=== PATIENT | male | born 1990 | race Caucasian/White ===

== ENCOUNTER 2018-10-11 10:57 | Emergency (ER) | payer SELFPAY ==
[~2018-10-11] VITALS: Ht 190.5 cm; Wt 176.0 kg
--- OUTSIDE RECORDS SUMMARY | 2018-10-11 11:03 | XMS REPORT | Continuity of Care Document ---
Author Organization Unknown Address Unknown Allergies There is no data. Medications There is no data. Problems There is no data. Procedures There is no data. Results There is no data. Encounters ACCT No. Visit Date/Time Discharge Status Pt. Type Provider Facility Loc./Unit Complaint [id number] 10/09/2018 18:00:00 ACT Outpatient JOSE KRAMER [facility] IN [facility]
--- NOTE | 2018-10-11 11:08 | ED General ---
General Stated Complaint: DIZZY/LOST VISION IN RT EYE AFTER TAKING MEDS Source of Information: Patient Exam Limitations: No Limitations History of Present Illness Date Seen by Provider: Oct 11, 2018 Time Seen by Provider: 11:10 Initial Comments 28-year-old male presents after getting dizzy. Patient reports he was outside working when ago bit dizzy and lost some brief vision in his right eye. Patient reports that he is concerned might be due to his medication. He is taking Cefdiner for recurrent strep. Patient also reports that he was outside working all day yesterday in the heat and then again this morning when this happened. He is feeling all dehydrated based states he is trying to drink. Patient to have a sore throat from his strep. He did not lose consciousness when he dizzy. He did not have any other focal weaknesses. Allergies and Home Medications Allergies Coded Allergies: Penicillins (Verified Allergy, Unknown, 10/11/18) amoxicillin (Verified Allergy, Unknown, 10/11/18) Patient Home Medication List Home Medication List Reviewed: Yes Review of Systems Review of Systems Constitutional: dizziness, malaise EENTM: see HPI Respiratory: no symptoms reported Cardiovascular: no symptoms reported Gastrointestinal: no symptoms reported Genitourinary: no symptoms reported Musculoskeletal: no symptoms reported Skin: no symptoms reported Past Pozpcze-Bdgrxy-Ipvgez Hx Past Med/Social Hx: Reviewed Nursing Past Med/Soc Hx Physical Exam Vital Signs Vital Signs - First Documented 10/11/18 11:00 Temp 98.0 Pulse 118 Resp 18 B/P (MAP) 142/113 (123) Pulse Ox 95 O2 Delivery Room Air Capillary Refill : Height, Weight, BMI Height: '" Weight: lbs. oz. 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 Norm as Tested Skin: Warm/Dry Focused Exam Lactate Level 10/11/18 11:30: Lactic Acid Level 0.75 Lactic Acid Level Laboratory Tests Test 10/11/18 11:30 Lactic Acid Level 0.75 MMOL/L (0.50-2.00) Progress/Results/Core Measures Suspected Sepsis SIRS Temperature: Pulse: Respiratory Rate: Laboratory Tests 10/11/18 11:30: White Blood Count 7.0 Blood Pressure / Mean: 10/11/18 11:30: Lactic Acid Level 0.75 Laboratory Tests 10/11/18 11:30: Creatinine 0.72, Platelet Count 151 Results/Orders Lab Results Laboratory Tests Test 10/11/18 11:30 Range/Units White Blood Count 7.0 4.3-11.0 10^3/uL Red Blood Count 4.51 4.35-5.85 10^6/uL Hemoglobin 13.5 13.3-17.7 G/DL Hematocrit 41 40-54 % Mean Corpuscular Volume 90 80-99 FL Mean Corpuscular Hemoglobin 30 25-34 PG Mean Corpuscular Hemoglobin Concent 33 32-36 G/DL Red Cell Distribution Width 13.0 10.0-14.5 % Platelet Count 151 130-400 10^3/uL Mean Platelet Volume 13.2 H 7.4-10.4 FL Neutrophils (%) (Auto) 64 42-75 % Lymphocytes (%) (Auto) 21 12-44 % Monocytes (%) (Auto) 1 0-12 % Eosinophils (%) (Auto) 3 0-10 % Basophils (%) (Auto) 0 0-10 % Neutrophils # (Auto) 4.5 1.8-7.8 X 10^3 Lymphocytes # (Auto) 1.5 1.0-4.0 X 10^3 Monocytes # (Auto) 0.8 0.0-1.0 X 10^3 Eosinophils # (Auto) 0.2 0.0-0.3 10^3/uL Basophils # (Auto) 0.0 0.0-0.1 10^3/uL Sodium Level 141 135-145 MMOL/L Potassium Level 4.1 3.6-5.0 MMOL/L Chloride Level 103 98-107 MMOL/L Carbon Dioxide Level 24 21-32 MMOL/L Anion Gap 14 5-14 MMOL/L Blood Urea Nitrogen 11 7-18 MG/DL Creatinine 0.72 0.60-1.30 MG/DL Estimat Glomerular Filtration Rate > 60 BUN/Creatinine Ratio 15 Glucose Level 95 70-105 MG/DL Lactic Acid Level 0.75 0.50-2.00 MMOL/L Calcium Level 9.4 8.5-10.1 MG/DL My Orders Orders - EDA ALLEN DO Basic Metabolic Panel (10/11/18 11:11) Cbc With Automated Diff (10/11/18 11:11) Lactic Acid Analyzer (10/11/18 11:11) Ed Iv/Invasive Line Start (10/11/18 11:11) Ns Iv 1000 Ml (Sodium Chloride 0.9%) (10/11/18 11:11) Vital Signs/I&O 10/11/18 10/11/18 11:00 11:52 Temp 98.0 Pulse 118 Resp 18 B/P (MAP) 142/113 (123) 113/72 (86) Pulse Ox 95 O2 Delivery Room Air Capillary Refill : Progress Note : Time: 12:25 Progress Note Patient had no further episodes since 1 from this morning and remained asymptomatic throughout his stay in the ER. He has no acute physical findings. I reviewed normal labs with him. I discussed with patient that I suspect it was from he exhaustion and dehydration due to him being outside all day yesterday and then it reoccurring when he was outside this morning. I did discuss with him that he should try his medication for one more dose. It if he gets recurrent symptoms following that antibiotic that he should stop it and follow-up with her primary care physician for different antibiotic. Patient will be discharged home in stable condition. Departure Impression Primary Impression: Dizziness Additional Impressions: Heat causing syncope Qualified Codes: T67.1XXA - Heat syncope, initial encounter Dehydration Strep pharyngitis Disposition: 01 HOME, SELF-CARE Condition: Improved Departure-Patient Inst. Referrals: JOSE KRAMER MD (PCP/Family) Primary Care Physician Patient Instructions: Syncope (Fainting) (DC), Strep Throat (DC), Dehydration, Adult (DC), Heat Exhaustion and Heat Stroke (DC) EDA ALLEN DO Oct 11, 2018 11:08
[2018-10-11] MEDS ORDERED: NS IV 1000 ML 1,000 ML IV SCH (11:11)
[2018-10-11 11:44] LABS: BASOPHILS % (AUTO) 0 % (0-10); EOSINOPHILS % (AUTO) 3 % (0-10); HEMATOCRIT 41 % (40-54); HEMOGLOBIN 13.5 G/DL (13.3-17.7); LYMPHOCYTES % (AUTO) 21 % (12-44); MEAN CORPUSCULAR HEMOGLOBIN 30 PG (25-34); MEAN CORPUSCULAR HGB CONC 33 G/DL (32-36); MEAN CORPUSCULAR VOLUME 90 FL (80-99); MEAN PLATELET VOLUME 13.2 FL (7.4-10.4); MONOCYTES % (AUTO) 1 % (0-12); NEUTROPHILS # (AUTO) 4.5 X 10^3 (1.8-7.8); NEUTROPHILS % (AUTO) 64 % (42-75); PLATELET COUNT 151 10^3/uL (130-400)
[2018-10-11 11:45] LABS: EOSINOPHILS # (AUTO) 0.2 10^3/uL (0.0-0.3); LYMPHOCYTES # (AUTO) 1.5 X 10^3 (1.0-4.0); MONOCYTES # (AUTO) 0.8 X 10^3 (0.0-1.0)
[2018-10-11 11:52] VITALS: BP 113/72
[2018-10-11 12:08] LABS: BUN/CREATININE RATIO 15; CALCIUM 9.4 MG/DL (8.5-10.1); CARBON DIOXIDE 24 MMOL/L (21-32); CHLORIDE 103 MMOL/L (98-107); CREATININE SERUM 0.72 MG/DL (0.60-1.30); GFR ESTIMATED > 60; GLUCOSE 95 MG/DL (70-105); POTASSIUM 4.1 MMOL/L (3.6-5.0); SODIUM 141 MMOL/L (135-145)
[2018-10-11] MEDS ORDERED: cefTRIAXone 1,000 MG IV (ROCEPHIN) VIAL ONE (12:41)
[2018-10-11] MEDS ORDERED: WATER (STERILE) FOR INJECTION 10 ML ONE (12:42)
[2018-10-11] MEDS ORDERED: cefTRIAXone FOR IV USE 1,000 MG in WATER (STERILE) FOR INJECTION 10 ML IV ONE (12:45)
[2018-10-11] MEDS ORDERED: ONDANSETRON 4 MG/2 ML (SDV) Z0FRAN ONE (12:50)
[2018-10-11] MEDS ORDERED: ONDANSETRON 4 MG/2 ML (SDV) Z0FRAN IVP ONE (13:00)
[2018-10-11 13:15] VITALS: BP 115/82
== END 2018-10-11 13:00 | disposition home or self-care (01) ==
LOC: ER FS 11:00
DX: T67.1XXA Heat syncope, initial encounter (principal); R42 Dizziness and giddiness; E86.0 Dehydration; J02.0 Streptococcal pharyngitis; Z88.0 Allergy status to penicillin; Z88.1 Allergy status to other antibiotic agents
CPT/HCPCS: 36415; 80048; 83605; 85025

== ENCOUNTER 2019-01-05 08:42 | Emergency (ER) | payer SELFPAY ==
[~2019-01-05] VITALS: Ht 190 cm; Wt 181.0 kg
[2019-01-05] MEDS ORDERED: ASPIRIN 81 MG CHEW (CHILDREN'S ASA) PO ONE (09:15)
--- NOTE | 2019-01-05 09:41 | Diagnostic Imaging Report ---
Indication: Chest pain. Time of exam: 9:09 AM No prior studies are available for comparison. The heart size is normal. The pulmonary vascularity is unremarkable. The lungs are clear. No infiltrate, effusion or pneumothorax is detected. Impression: No acute cardiopulmonary process is detected. Dictated by: Dictated on workstation # [id number]
--- NOTE | 2019-01-05 09:42 | ED Cardiac General ---
History of Present Illness General Chief Complaint: Chest Pain Stated Complaint: CHEST PAIN; HIGH BP; BLURRY VISION Nursing Triage Note: woke up from sleep this a.m. with chest pain, currently rated at 3/10. States has had chest pain before but does not remember what it is from. Has vomited 3 times this morning. History of Present Illness Date Seen by Provider: Jan 05, 2019 Time Seen by Provider: 08:45 Initial Comments The patient is a 28-year-old morbidly obese male who is a tobacco smoker. He has no known medical history but does not follow with a primary care physician. The patient presents with concern for acute onset of achy substernal chest discomfort, nonradiating and constant, which awoke him from sleep at about 4 AM. Pain was 10 out of 10 in severity initially and is about 3 out of 10 now, but still present. Associated nausea with 3 episodes of nonbloody vomiting. No associated shortness of breath, diaphoresis, abdominal pain or back pain. Patient states pain is nonexertional and perhaps minimally pleuritic, but not significantly so. No associated fevers, cough, dysuria or hematuria, changes in bowel habits. H and states that he has had this pain before, some time ago, and had a negative workup in the emergency department and was released to follow up but did not do so. Allergies and Home Medications Allergies Coded Allergies: Penicillins (Verified Allergy, Unknown, 10/11/18) amoxicillin (Verified Allergy, Unknown, 10/11/18) Patient Home Medication List Home Medication List Reviewed: Yes Review of Systems Review of Systems Constitutional: see HPI All Other Systems Reviewed Negative Unless Noted: Yes (Negative excepted noted.) Past Bejcmrz-Woocvp-Eezbdn Hx Past Med/Social Hx: Reviewed Nursing Past Med/Soc Hx Patient Social History Alcohol Use: Denies Use Recreational Drug Use: No Smoking Status: Current Someday Smoker 2nd Hand Smoke Exposure: Yes Recent Foreign Travel: No Contact w/Someone Who Travel: No Recent Infectious Disease Expo: No Recent Hopitalizations: No Physical Abuse: No Sexual Abuse: No Mistreated: No Fear: No Seasonal Allergies Seasonal Allergies: No Past Medical History Surgeries: No Respiratory: No Cardiac: No Neurological: No Genitourinary: No Gastrointestinal: No Musculoskeletal: No Endocrine: No HEENT: No Cancer: No Psychosocial: No Integumentary: No Family Medical History Reviewed Nursing Family Hx Physical Exam Vital Signs Vital Signs - First Documented 01/05/19 08:50 Temp 36.3 Pulse 81 Resp 18 B/P (MAP) 135/73 (93) Pulse Ox 98 Capillary Refill : Less Than 3 Seconds Height, Weight, BMI Height: 6'3.00" Weight: 388lbs. oz. [id number]; 50.00 BMI Method:Stated General Appearance: No Apparent Distress Other comments This is a morbidly obese, younger male appearing nontoxic and in no acute distress. Head is normocephalic and atraumatic. Neck is supple and nontender. Oropharynx is moist. Lungs are clear to auscultation in all stations. There is a normal S1 and S2 without rubs or gallops and capillary refill is appropriate, less than 2 seconds globally. Abdomen is soft, nontender and nondistended. Skin is warm and dry without cyanosis, clubbing or edema. Psychiatrically, the patient instructed appropriate mood and affect and is a lert. Progress/Results/Core Measures Results/Orders Lab Results Laboratory Tests Test 01/05/19 09:23 Range/Units White Blood Count 5.0 4.3-11.0 10^3/uL Red Blood Count 4.70 4.35-5.85 10^6/uL Hemoglobin 13.8 13.3-17.7 G/DL Hematocrit 42 40-54 % Mean Corpuscular Volume 87 80-99 FL Mean Corpuscular Hemoglobin 29 25-34 PG Mean Corpuscular Hemoglobin Concent 33 32-36 G/DL Red Cell Distribution Width 12.4 10.0-14.5 % Platelet Count 149 130-400 10^3/uL Mean Platelet Volume 13.0 H 7.4-10.4 FL Neutrophils (%) (Auto) 58 42-75 % Lymphocytes (%) (Auto) 29 12-44 % Monocytes (%) (Auto) 10 0-12 % Eosinophils (%) (Auto) 3 0-10 % Basophils (%) (Auto) 0 0-10 % Neutrophils # (Auto) 2.9 1.8-7.8 X 10^3 Lymphocytes # (Auto) 1.5 1.0-4.0 X 10^3 Monocytes # (Auto) 0.5 0.0-1.0 X 10^3 Eosinophils # (Auto) 0.1 0.0-0.3 10^3/uL Basophils # (Auto) 0.0 0.0-0.1 10^3/uL Prothrombin Time 12.9 12.2-14.7 SEC INR Comment 0.9 0.8-1.4 Activated Partial Thromboplast Time 25 24-35 SEC Sodium Level 142 135-145 MMOL/L Potassium Level 4.5 3.6-5.0 MMOL/L Chloride Level 107 98-107 MMOL/L Carbon Dioxide Level 26 21-32 MMOL/L Anion Gap 9 5-14 MMOL/L Blood Urea Nitrogen 8 7-18 MG/DL Creatinine 0.64 0.60-1.30 MG/DL Estimat Glomerular Filtration Rate > 60 BUN/Creatinine Ratio 13 Glucose Level 111 H 70-105 MG/DL Calcium Level 9.6 8.5-10.1 MG/DL Corrected Calcium 9.2 8.5-10.1 MG/DL Total Bilirubin 0.4 0.1-1.0 MG/DL Aspartate Amino Transf (AST/SGOT) 23 5-34 U/L Alanine Aminotransferase (ALT/SGPT) 39 0-55 U/L Alkaline Phosphatase 85 40-136 U/L Troponin I < 0.30 <0.30 NG/ML Pro-B-Type Natriuretic Peptide 120.7 H <75.0 PG/ML Total Protein 7.6 6.4-8.2 GM/DL Albumin 4.5 3.2-4.5 GM/DL Lipase 13 8-78 U/L My Orders Orders - ZION MCGILL MD Cbc With Automated Diff (01/05/19 09:01) Comprehensive Metabolic Panel (01/05/19 09:01) Troponin I (01/05/19 09:01) Ekg Tracing (01/05/19 09:01) Chest 1 View Ap/Pa Only (01/05/19 09:01) Protime With Inr (01/05/19 09:01) Partial Thromboplastin Time (01/05/19 09:01) Probnp Fs (01/05/19 09:01) Lipase (01/05/19 09:01) Aspirin Chewable Tablet (Baby Aspirin Ch (01/05/19 09:15) Nitroglycerin 0.4 Mg Btl 25's (Nitrostat (01/05/19 10:00) Medications Given in ED Current Medications Medications Dose Ordered Sig/Kirstin Route Start Time Stop Time Status Last Admin Dose Admin Aspirin 324 mg ONCE ONCE PO 01/05/19 09:15 01/05/19 09:16 DC 01/05/19 09:07 324 MG Nitroglycerin 1 TAB Q 5 MIN X 3 NEEDED PRN SL 01/05/19 10:00 01/05/19 10:24 0.4 MG Vital Signs/I&O 01/05/19 08:50 Temp 36.3 Pulse 81 Resp 18 B/P (MAP) 135/73 (93) Pulse Ox 98 Blood Pressure Mean: 93 Progress Progress Note : Progress Note 28-year-old morbidly obese tobacco smoker who weighs nearly 400 pounds who presents with substernal chest discomfort with associated vomiting with onset at 4 AM. Ordinarily would be less suspicious for ACS in someone this age however the patient does have risk factors and his electrocardiogram does also reveal a left ventricular conduction delay. Will check labs and chest x-ray and given aspirin and will minimally plan for observation admission for ACS r/o and attention from cardiology to facilitate a safe disposition for this gentleman. Update 1030: Workup remarkable for mildly elevated BNP without troponin elevation and no other acute findings appreciated. As per plan above we'll proceed with admission for ACS rule out, observation on telemetry, likely echocardiogram and attention from cardiology. Patient and family request that he not be sent to [place] as they do not like that hospital so per family request will transfer the patient to [facility]. Patient is graciously accepted in transfer by Dr. Loza. Comment Sinus rhythm, no acute ST elevation or depression, left ventricular conduction delay/left bundle branch block, Sgarbossa criteria not met, rate 79, VT 145, QRS 135, QTC 443, EP interpretation. Diagnostic Imaging Diagonstic Imaging: Xray Plain Films/CT/US/NM/MRI: chest Comments No acute process, EP interp Departure Impression Primary Impression: Chest pain Disposition: XF [facility] HOSP Condition: Stable Transfer Method of Transfer: EMS Departure-Patient Inst. Referrals: JOSE KRAMER MD (PCP/Family) Primary Care Physician ZION MCGILL MD Jan 05, 2019 09:41
[2019-01-05 09:43] LABS: BASOPHILS % (AUTO) 0 % (0-10); EOSINOPHILS # (AUTO) 0.1 10^3/uL (0.0-0.3); EOSINOPHILS % (AUTO) 3 % (0-10); HEMATOCRIT 42 % (40-54); HEMOGLOBIN 13.8 G/DL (13.3-17.7); LYMPHOCYTES # (AUTO) 1.5 X 10^3 (1.0-4.0); LYMPHOCYTES % (AUTO) 29 % (12-44); MEAN CORPUSCULAR HEMOGLOBIN 29 PG (25-34); MEAN CORPUSCULAR HGB CONC 33 G/DL (32-36); MEAN CORPUSCULAR VOLUME 87 FL (80-99); MONOCYTES # (AUTO) 0.5 X 10^3 (0.0-1.0); MONOCYTES % (AUTO) 10 % (0-12); NEUTROPHILS # (AUTO) 2.9 X 10^3 (1.8-7.8); NEUTROPHILS % (AUTO) 58 % (42-75); PLATELET COUNT 149 10^3/uL (130-400); RED CELL DISTRIBUTION WIDTH 12.4 % (10.0-14.5)
[2019-01-05 09:49] LABS: INR 0.9 (0.8-1.4); PROTHROMBIN TIME PATIENT 12.9 SEC (12.2-14.7)
[2019-01-05] MEDS ORDERED: NITROGLYCERIN 0.4 MG SL TABS BTL 25'S SL PRN (10:00)
[2019-01-05 10:10] LABS: ALANINE AMINOTRANSFERASE 39 U/L (0-55); ALKALINE PHOSPHATASE 85 U/L (40-136); BILIRUBIN,TOTAL 0.4 MG/DL (0.1-1.0); BUN/CREATININE RATIO 13; CALCIUM 9.6 MG/DL (8.5-10.1); CARBON DIOXIDE 26 MMOL/L (21-32); CHLORIDE 107 MMOL/L (98-107); CREATININE SERUM 0.64 MG/DL (0.60-1.30); GFR ESTIMATED > 60; GLUCOSE 111 MG/DL (70-105); POTASSIUM 4.5 MMOL/L (3.6-5.0); SODIUM 142 MMOL/L (135-145)
[2019-01-05 10:11] LABS: ALBUMIN 4.5 GM/DL (3.2-4.5); LIPASE 13 U/L (8-78); TOTAL PROTEIN 7.6 GM/DL (6.4-8.2)
[2019-01-05 11:30] VITALS: BP 117/57
--- NOTE | 2019-01-05 11:58 | NUR ---
Called dispatch to page out transfer at this time.
--- NOTE | 2019-01-05 12:39 | NUR ---
patient transferred at this time to [place] room 212. Report given to gwen coil inspector.
== END 2019-01-05 12:39 | disposition short-term general hospital (02) ==
LOC: EDUNIT# 08:42 → ER FS 08:45
DX: R07.9 Chest pain, unspecified (principal); E66.01 Morbid (severe) obesity due to excess calories; F17.200 Nicotine dependence, unspecified, uncomplicated; Z88.0 Allergy status to penicillin
CPT/HCPCS: 36415; 71045; 80053; 83690; 83880; 84484; 85025; 85610; 85730; 93005

== ENCOUNTER 2019-03-30 17:18 | Emergency (ER) | payer MEDICAID ==
[~2019-03-30] VITALS: Ht 190.5 cm; Wt 184.9 kg
[2019-03-30] MEDS ORDERED: morphine INJ 10 MG/ML 1ML (SYR OR VIAL) IVP STA (17:44)
[2019-03-30] MEDS ORDERED: TETANUS,DIPTH,PERTUSS P/F (BOOSTRIX) 0.5 ML VIAL IM ONE (17:45)
[2019-03-30] MEDS ORDERED: IOHEXOL 350 MG/ML 100 ML (OMNIPAQUE 350) VIAL IV ONE (18:00)
[2019-03-30] MEDS ORDERED: HOLD METFORMIN - RECEIVED CONTRAST 20 ML VIAL IV SCH (18:00)
[2019-03-30] MEDS ORDERED: NS 100 ML (IVPB) BAG IV ONE (18:00)
[2019-03-30] MEDS ORDERED: CATHETER FLUSH 10 ML SYR IV PRN (18:00)
[2019-03-30 18:22] LABS: HEMOGLOBIN 13.4 G/DL (13.3-17.7); MEAN PLATELET VOLUME 12.6 FL (7.4-10.4); RED CELL DISTRIBUTION WIDTH 12.9 % (10.0-14.5); WHITE BLOOD COUNT 8.1 10^3/uL (4.3-11.0)
[2019-03-30] MEDS ORDERED: ONDANSETRON 4 MG/2 ML (SDV) Z0FRAN ONE (18:28)
[2019-03-30] MEDS ORDERED: ONDANSETRON 4 MG/2 ML (SDV) Z0FRAN IVP ONE (18:30)
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
[2019-03-30 18:48] LABS: CARBON DIOXIDE 25 MMOL/L (21-32); CHLORIDE 102 MMOL/L (98-107); INR 0.9 (0.8-1.4); POTASSIUM 3.5 MMOL/L (3.6-5.0); SODIUM 141 MMOL/L (135-145)
[2019-03-30 18:49] LABS: ALANINE AMINOTRANSFERASE 35 U/L (0-55); ALBUMIN 4.6 GM/DL (3.2-4.5); ALKALINE PHOSPHATASE 85 U/L (40-136); BILIRUBIN,TOTAL 0.4 MG/DL (0.1-1.0); BUN/CREATININE RATIO 15; CALCIUM 9.7 MG/DL (8.5-10.1); CREATININE SERUM 0.68 MG/DL (0.60-1.30); GFR ESTIMATED > 60; GLUCOSE 100 MG/DL (70-105); TOTAL PROTEIN 7.9 GM/DL (6.4-8.2)
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
[2019-03-30] MEDS ORDERED: TRAM50TA2 PO (19:24)
[2019-03-30 19:27] VITALS: BP 117/87
== END 2019-03-30 19:36 | disposition home or self-care (01) ==
LOC: EDUNIT# 17:18 → ER FS 17:20
DX: S00.83XA Contusion of other part of head, initial encounter (principal); S20.219A Contusion of unspecified front wall of thorax, initial encounter; S80.211A Abrasion, right knee, initial encounter; S80.212A Abrasion, left knee, initial encounter; E66.01 Morbid (severe) obesity due to excess calories; Z80.0 Family history of malignant neoplasm of digestive organs; Z68.43 Body mass index [BMI] 50.0-59.9, adult; Z77.22 Contact with and (suspected) exposure to environmental tobacco smoke (acute) (chronic); Z23 Encounter for immunization; V47.5XXA Car driver injured in collision with fixed or stationary object in traffic accident, initial encounter
CPT/HCPCS: 36415; 70450; 71260; 72125; 74177; 80053; 85027; 85610; 85730; 90715

== ENCOUNTER 2019-09-05 11:38 | Emergency (ER) | payer MEDICAID ==
[~2019-09-05] VITALS: Ht 190.5 cm; Wt 212.5 kg
[~2019-09-05 11:38] MED LIST: TRM50T PO
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
[2019-09-05 11:50] VITALS: BP_SYST 150; BP_SYST 161; BP_SYST 162; BP_DIAS 72; BP_DIAS 80; BP_DIAS 81
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
[2019-09-05 12:36] LABS: BASOPHILS % (AUTO) 0 % (0-10); EOSINOPHILS % (AUTO) 1 % (0-10); HEMATOCRIT 38 % (40-54); HEMOGLOBIN 12.7 G/DL (13.3-17.7); LYMPHOCYTES % (AUTO) 24 % (12-44); MEAN CORPUSCULAR HEMOGLOBIN 30 PG (25-34); MEAN CORPUSCULAR HGB CONC 34 G/DL (32-36); MEAN CORPUSCULAR VOLUME 88 FL (80-99); MEAN PLATELET VOLUME 12.3 FL (7.4-10.4); MONOCYTES % (AUTO) 11 % (0-12); NEUTROPHILS % (AUTO) 64 % (42-75); PLATELET COUNT 160 10^3/uL (130-400); RED CELL DISTRIBUTION WIDTH 13.2 % (10.0-14.5); WHITE BLOOD COUNT 5.3 10^3/uL (4.3-11.0)
[2019-09-05 12:37] LABS: EOSINOPHILS # (AUTO) 0.1 10^3/uL (0.0-0.3); LYMPHOCYTES # (AUTO) 1.3 X 10^3 (1.0-4.0); MONOCYTES # (AUTO) 0.6 X 10^3 (0.0-1.0); NEUTROPHILS # (AUTO) 3.4 X 10^3 (1.8-7.8)
[2019-09-05] MEDS ORDERED: PANT40TA3 (12:42)
[2019-09-05] MEDS ORDERED: LOSA50TA63 (12:42)
[2019-09-05] MEDS ORDERED: SUCR1TAB (12:42)
[2019-09-05] MEDS ORDERED: METO-333 (12:42)
[2019-09-05] MEDS ORDERED: METHIMAZOLE (12:42)
[2019-09-05] MEDS ORDERED: FURO20TA4 (12:42)
[2019-09-05 12:52] LABS: ALKALINE PHOSPHATASE 70 U/L (40-136); BILIRUBIN,TOTAL 0.4 MG/DL (0.1-1.0); BUN/CREATININE RATIO 14; CALCIUM 9.3 MG/DL (8.5-10.1); CARBON DIOXIDE 27 MMOL/L (21-32); CHLORIDE 101 MMOL/L (98-107); GFR ESTIMATED > 60; GLUCOSE 106 MG/DL (70-105); POTASSIUM 4.4 MMOL/L (3.6-5.0); SODIUM 138 MMOL/L (135-145)
[2019-09-05 12:53] LABS: ALANINE AMINOTRANSFERASE 62 U/L (0-55); ALBUMIN 4.3 GM/DL (3.2-4.5); TOTAL PROTEIN 7.2 GM/DL (6.4-8.2)
[2019-09-05 13:29] LABS: BAND NEUTROPHILS 4 %; BASOPHILS % (MANUAL) 1 %; EOSINOPHILS % (MANUAL) 2 %; LYMPHOCYTES % (MANUAL) 22 %; MONOCYTES % (MANUAL) 12 %; NEUTROPHILS % (MANUAL) 59 %; RBC MORPH NORMAL
[2019-09-05 13:45] VITALS: BP 146/61
== END 2019-09-05 13:45 | disposition home or self-care (01) ==
LOC: EDUNIT# 11:38 → ER FS 11:39
DX: R42 Dizziness and giddiness (principal); Z88.0 Allergy status to penicillin; Z88.2 Allergy status to sulfonamides; Z77.22 Contact with and (suspected) exposure to environmental tobacco smoke (acute) (chronic)
CPT/HCPCS: 36415; 80053; 84484; 85007; 85027; 93005

== ENCOUNTER 2019-10-11 11:48 | Emergency (ER) | payer MEDICAID ==
[~2019-10-11] VITALS: Ht 190 cm; Wt 210.0 kg
[~2019-10-11 11:48] MED LIST changes: +FURO20TA4; +LOSA50TA63; +METHIMAZOLE; +METO-333; +PANT40TA3; +SUCR1TAB
--- NOTE | 2019-10-11 11:54 | ED General ---
General Chief Complaint: Cardiac/General Problems Stated Complaint: HIGH BP Source of Information: Patient History of Present Illness Date Seen by Provider: Oct 11, 2019 Time Seen by Provider: 11:54 Initial Comments Patient is a 29-year-old morbidly obese male who comes to the emergency department today for high blood pressure. Patient states he has checked his blood pressure over the last couple days he has noted a wide variance and pressures. The highest being somewhere around systolic of 180. He went to urgent care this morning for evaluation and was recommended to follow up with his primary care physician for blood pressure management. Patient was not satisfied with this answer and came to the emergency room. He denies any symptoms. No chest pain, shortness of breath, vision changes, headaches, palpitations. He has been at baseline health with no recent illness. He does take losartan 50 mg daily as well as 25 mg of metoprolol twice a day and has been compliant with these medications. No recent dietary changes or medication changes. Allergies and Home Medications Allergies Coded Allergies: Penicillins (Verified Allergy, Unknown, 10/11/18) Sulfa (Sulfonamide Antibiotics) (Verified Allergy, Unknown, 03/30/19) amoxicillin (Verified Allergy, Unknown, 10/11/18) Patient Home Medication List Home Medication List Reviewed: Yes Review of Systems Review of Systems Constitutional: no symptoms reported EENTM: no symptoms reported Respiratory: no symptoms reported Cardiovascular: no symptoms reported Musculoskeletal: no symptoms reported Skin: no symptoms reported All Other Systems Reviewed Negative Unless Noted: Yes Past Kgnyrux-Vapxqo-Ukapvd Hx Patient Social History Type Used: Cigarettes Former Smoker, Quit: Dec 14, 2018 2nd Hand Smoke Exposure: Yes Recent Hopitalizations: No Seasonal Allergies Seasonal Allergies: No Past Medical History Surgeries: No Respiratory: No Cardiac: Yes (Patient states, "Fluid around my heart".) Angina, Hypertension Neurological: No Genitourinary: No Gastrointestinal: No Gastroesophageal Reflux Musculoskeletal: No Endocrine: Yes Hyperthyroidism HEENT: No Cancer: No Psychosocial: No Integumentary: No (patient has multiple tattoos mostly well-healed he has no signs of skin inj) Blood Disorders: No Physical Exam Vital Signs Vital Signs - First Documented 10/11/19 11:55 Temp 36.6 Pulse 96 Resp 16 B/P (MAP) 148/90 (109) Pulse Ox 98 Capillary Refill : Height, Weight, BMI Height: 6'3.00" Weight: 388lbs. oz. 175.730004tn; 58.00 BMI Method:Stated General Appearance: No Apparent Distress, WD/WN Neck: Full Range of Motion Respiratory: Lungs Clear, Normal Breath Sounds Cardiovascular: Regular Rate, Rhythm, No Edema Extremity: Normal Capillary Refill, Normal Range of Motion Neurologic/Psychiatric: Alert, Oriented x3 Skin: Normal Color Progress/Results/Core Measures Suspected Sepsis SIRS Temperature: Pulse: Respiratory Rate: Blood Pressure / Mean: Results/Orders Vital Signs/I&O 10/11/19 11:55 Temp 36.6 Pulse 96 Resp 16 B/P (MAP) 148/90 (109) Pulse Ox 98 Capillary Refill : Progress Note : Time: 11:54 Progress Note Patient is seen in the ER for high blood pressure. He has no subjective symptoms. Objectively, he is in no distress and his blood pressure is 148/90. I informed the patient there was no specific testing to figure out why he is having some fluctuations in his blood pressure which sound mild according to his history. He has no signs or symptoms of hypertensive urgency and his blood pressure is not and arrange that would be consistent with that diagnosis. I recommended he follow up with his primary care physician for further evaluation. The patient left the department prior to receiving discharge instructions. Departure Impression Primary Impression: Essential hypertension Disposition: 01 HOME, SELF-CARE Condition: Stable Departure-Patient Inst. Referrals: JOSE KRAMER MD (PCP/Family) Primary Care Physician EARL BORDEN DO Oct 11, 2019 11:54
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
[2019-10-11 11:55] VITALS: BP 148/90
== END 2019-10-11 12:05 | disposition home or self-care (01) ==
LOC: EDUNIT# 11:48 → ER FS 11:50
DX: I10 Essential (primary) hypertension (principal); E66.01 Morbid (severe) obesity due to excess calories; Z68.43 Body mass index [BMI] 50.0-59.9, adult; Z88.0 Allergy status to penicillin; Z88.2 Allergy status to sulfonamides; Z87.891 Personal history of nicotine dependence
CPT/HCPCS: 99283

== ENCOUNTER 2019-11-01 19:13 | Emergency (ER) | payer MEDICAID ==
[~2019-11-01] VITALS: Ht 190.5 cm; Wt 206.6 kg
[2019-11-01 19:20] VITALS: BP 164/98
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
[2019-11-01] MEDS ORDERED: DICL75TA2 PO (19:24)
--- NOTE | 2019-11-01 19:25 | ED General ---
General Stated Complaint: DENTAL PAIN Source of Information: Patient Exam Limitations: No Limitations History of Present Illness Date Seen by Provider: Nov 01, 2019 Time Seen by Provider: 19:20 Initial Comments This patient presents to the emerge from complaining of dental pain. Patient just left the walk-in clinic and a prescription for clindamycin. He states that he did not give anything for pain. Patient states Tylenol does not work. Tussling with patient patient offered nonsteroidal pain medication. Patient will be given a prescription for diclofenac. Patient may use Orajel or Anbesol as needed. Patient's finish all antibiotics and follow-up with his PCP or dentist of choice in 2-3 days Timing/Duration: 2-3 Days Severity: Mild Associated Systoms: Denies Symptoms Allergies and Home Medications Allergies Coded Allergies: Penicillins (Verified Allergy, Unknown, 10/11/18) Sulfa (Sulfonamide Antibiotics) (Verified Allergy, Unknown, 03/30/19) amoxicillin (Verified Allergy, Unknown, 10/11/18) Patient Home Medication List Home Medication List Reviewed: Yes Review of Systems Review of Systems Constitutional: No no symptoms reported; see HPI; No chills, No diaphoresis, No dizziness, No fever, No malaise, No weakness, No weight gain, No weight loss, No other EENTM: dental problems; No see HPI, No no symptoms reported, No ear discharge, No hearing loss, No ear pain, No blurred vision, No double vision, No eye pain, No tearing, No vision loss, No hoarseness, No mouth pain, No mouth swelling, No epistaxis, No nose congestion, No nose pain, No throat pain, No throat swelling, No other Respiratory: No no symptoms reported, No see HPI, No cough, No dyspnea on exertion, No hemoptysis, No orthopnea, No phlegm, No short of breath, No stridor, No wheezing, No other Cardiovascular: No no symptoms reported, No see HPI, No chest pain, No edema, No Hx of Intervention, No palpitations, No syncope, No vascular heart diseas, No other Gastrointestinal: No RUQ, No LUQ, No RLQ, No LLQ, No no symptoms reported, No see HPI, No abdominal pain, No constipation, No diarrhea, No dysphagia, No hematemesis, No heartburn, No jaundice, No loss of appetite, No melena, No nausea, No vomiting, No other Genitourinary: No no symptoms reported, No see HPI, No decreased output, No discharge, No dysuria, No frequency, No hematuria, No hesitancy, No incontinence, No nocturia, No pain, No other All Other Systems Reviewed Negative Unless Noted: Yes Past Nibyzkg-Ukhzgg-Ctthen Hx Patient Social History Type Used: Cigarettes Former Smoker, Quit: Dec 14, 2018 2nd Hand Smoke Exposure: Yes Recent Foreign Travel: No Contact w/Someone Who Travel: No Recent Hopitalizations: No Seasonal Allergies Seasonal Allergies: No Past Medical History Surgeries: No Respiratory: No Cardiac: Yes (Patient states, "Fluid around my heart".) Angina, Hypertension Neurological: No Genitourinary: No Gastrointestinal: No Gastroesophageal Reflux Musculoskeletal: No Endocrine: Yes Hyperthyroidism HEENT: No Cancer: No Psychosocial: No Integumentary: No (patient has multiple tattoos mostly well-healed he has no signs of skin inj) Blood Disorders: No Physical Exam Vital Signs Capillary Refill : Height, Weight, BMI Height: 6'3.00" Weight: 388lbs. oz. 175.178622cf; 58.00 BMI Method:Stated General Appearance: No Apparent Distress, WD/WN HEENT: PERRL/EOMI, TMs Normal, Normal ENT Inspection, Pharynx Normal Cardiovascular: Regular Rate, Rhythm, No Edema, No Gallop, No JVD, No Murmur, Normal Peripheral Pulses Gastrointestinal: Normal Bowel Sounds, No Organomegaly, No Pulsatile Mass, Non Tender, Soft Neurologic/Psychiatric: Alert, Oriented x3, No Motor/Sensory Deficits, Normal Mood/Affect Skin: Normal Color, Warm/Dry Progress/Results/Core Measures Suspected Sepsis SIRS Temperature: Pulse: Respiratory Rate: Blood Pressure / Mean: Results/Orders Vital Signs/I&O Capillary Refill : Departure Impression Primary Impression: Pain, dental Disposition: 01 HOME, SELF-CARE Condition: Stable Departure-Patient Inst. Decision time for Depature: 19:24 Referrals: JOSE KRAMER MD (PCP/Family) Primary Care Physician Patient Instructions: Dental Pain Add. Discharge Instructions: Patient will be given a prescription for diclofenac. Patient may use Orajel or Anbesol as needed. Patient's finish all antibiotics and follow-up with his PCP or dentist of choice in 2-3 days Scripts Diclofenac Sodium (Diclofenac Sodium) 75 Mg Tablet. 75 MG PO BID for 10 Days, #20 TAB 0 Refills Prov: EARL RAPHAEL MD 11/01/19 EARL RAPHAEL MD Nov 01, 2019 19:24
== END 2019-11-01 19:28 | disposition home or self-care (01) ==
LOC: EDUNIT# 19:13 → ER FS 19:16
DX: K08.89 Other specified disorders of teeth and supporting structures (principal); Z88.0 Allergy status to penicillin; Z88.2 Allergy status to sulfonamides; Z87.891 Personal history of nicotine dependence; Z77.22 Contact with and (suspected) exposure to environmental tobacco smoke (acute) (chronic)
CPT/HCPCS: 99282

== ENCOUNTER 2019-12-06 12:52 | Emergency (ER) | payer MEDICAID ==
[~2019-12-06] VITALS: Ht 190.5 cm; Wt 199.2 kg
[~2019-12-06 12:52] MED LIST changes: +DICL75TA2 PO
[2019-12-06 12:58] VITALS: BP 136/98
--- NOTE | 2019-12-06 13:22 | ED Lower Extremity ---
General Chief Complaint: Lower Extremity Stated Complaint: LT LEG PAIN - FALL Nursing Triage Note: Pt amb to ED reporting he stepped onto porch 0630 and fell through the marielena. Abrasion medial L knee with mild swelling. Ambulatory without assistance with mild pain. Nursing Sepsis Screen: No Definite Risk History of Present Illness Date Seen by Provider: Dec 06, 2019 Time Seen by Provider: 13:00 Initial Comments Patient is a 29 y/o male who presents to the ER c/o pain to the left knee and leg area. Patient stepped outside his front door this am and one of the floorboards on the porch broke. He fell through it with the left leg sustaining injury and abrasion to the left knee. Incident happened at 06:00 this am and he has been able to weight bear since then. c/o abrasion and mild discomfort to the left knee area. Allergies and Home Medications Allergies Coded Allergies: Penicillins (Verified Allergy, Unknown, 10/11/18) Sulfa (Sulfonamide Antibiotics) (Verified Allergy, Unknown, 03/30/19) amoxicillin (Verified Allergy, Unknown, 10/11/18) Patient Home Medication List Home Medication List Reviewed: Yes Review of Systems Constitutional: no symptoms reported EENTM: no symptoms reported Respiratory: no symptoms reported Cardiovascular: no symptoms reported Musculoskeletal: see HPI Skin: see HPI All Other Systems Reviewed Negative Unless Noted: Yes Past Pxnhulb-Mvrrgk-Ziqaut Hx Patient Social History Alcohol Use: Denies Use Recreational Drug Use: No Smoking Status: Former Smoker Type Used: Cigarettes Former Smoker, Quit: Dec 14, 2018 2nd Hand Smoke Exposure: Yes Recent Foreign Travel: No Contact w/Someone Who Travel: No Recent Infectious Disease Expo: No Recent Hopitalizations: No Physical Abuse: No Sexual Abuse: No Mistreated: No Fear: No Immunizations Up To Date Tetanus Booster (TDap): Less than 5yrs Seasonal Allergies Seasonal Allergies: No Past Medical History Surgeries: No Respiratory: No Cardiac: Yes (Patient states, "Fluid around my heart".) Angina, Hypertension Neurological: No Genitourinary: No Gastrointestinal: No Gastroesophageal Reflux Musculoskeletal: No Endocrine: Yes Hyperthyroidism HEENT: No Cancer: No Psychosocial: No Integumentary: No (patient has multiple tattoos mostly well-healed he has no signs of skin inj) Blood Disorders: No Physical Exam Vital Signs Vital Signs - First Documented 8/23/20 12:58 Temp 37.1 Pulse 84 Resp 20 B/P (MAP) 136/98 (111) Pulse Ox 98 O2 Delivery Room Air Capillary Refill : Less Than 3 Seconds Height, Weight, BMI Height: 6'3.00" Weight: 388lbs. oz. 175.443111qv; 54.00 BMI Method:Stated General Appearance: WD/WN, no apparent distress Respiratory: lungs clear Knees: left knee other (full passive ROM of left knee w/o pain. minor abrasions present. no suturable wound.) Neurologic/Psychiatric: oriented x 3 Skin: normal color, other (superficial abrasions present over medial aspect of the left knee) Progress/Results/Core Measures Results/Orders My Orders Orders - EARL BORDEN DO Knee 3 View Left (12/06/19 13:01) Vital Signs/I&O 12/06/19 12:58 Temp 37.1 Pulse 84 Resp 20 B/P (MAP) 136/98 (111) Pulse Ox 98 O2 Delivery Room Air Blood Pressure Mean: 111 Progress Progress Note : Time: 13:32 Progress Note ED Summary: Patient seen in the ER for minor injury to the left knee. XR completed and without acute bony injury. Discharged home and will use tylenol or motrin at home as needed for discomfort. F/u with PCP or return to the ER for any worsening symptoms. Departure Impression Primary Impression: Abrasion of leg Disposition: HOME, SELF-CARE Condition: Improved Departure-Patient Inst. Referrals: JOSE KRAMER MD (PCP/Family) Primary Care Physician EARL BORDEN DO Dec 06, 2019 13:22
--- NOTE | 2019-12-06 13:43 | Diagnostic Imaging Report ---
HISTORY: Trauma with left knee pain. TECHNIQUE: 3 views of the left knee. COMPARISON: None FINDINGS: No acute fracture or dislocation is seen in the left knee. Alignment appears normal and joint spaces are preserved. IMPRESSION: 1. No acute osseous abnormalities seen in the left knee. Dictated by: Dictated on workstation # [id number]
== END 2019-12-06 13:28 | disposition home or self-care (01) ==
LOC: EDUNIT# 12:52 → ER FS 12:54
DX: S80.212A Abrasion, left knee, initial encounter (principal); Z88.0 Allergy status to penicillin; Z88.2 Allergy status to sulfonamides; Z88.1 Allergy status to other antibiotic agents; Z87.891 Personal history of nicotine dependence; W18.39XA Other fall on same level, initial encounter
CPT/HCPCS: 73562

== ENCOUNTER 2022-07-04 20:47 | Emergency (ER) | payer MEDICAID ==
[~2022-07-04] VITALS: Ht 190.5 cm; Wt 187.0 kg
[~2022-07-04 20:47] MED LIST changes: -PANT40TA3; +PANT40TA52
[2022-07-04 20:54] VITALS: BP 164/110
[2022-07-04] MEDS ORDERED: TETRACAINE 0.5% OPHTH SOLN 4 ML BTL (SINGLE DOSE ONLY) OU ONE (21:00)
[2022-07-04] MEDS ORDERED: BSS 15 ML IR ONE (21:00)
[2022-07-04] MEDS ORDERED: FLUORESCEIN (FLUOR-I-STRIPS) 1 MG STRP OU ONE (21:00)
--- NOTE | 2022-07-04 21:14 | ED EENT ---
History of Present Illness General Stated Complaint: R EYE FOREIGN BODY Source: patient History of Present Illness Date Seen by Provider: Jul 04, 2022 Time Seen by Provider: 20:57 Initial Comments 32-year-old female presenting with complaints of right eye pain. He states he was walking in a field and felt like something hit his side and was still in it. He denies any change in his vision. He does have some light sensitivity. He states this happened just prior to coming to the emergency department. He was not able to see anything in his eye himself. He did not take anything for pain prior to coming to the emergency department. Timing/Duration: abrupt, this evening Severity: severe Location: eye (R) Prearrival Treatment: no prearrival treatment Associated Symptoms: No change in hearing, No cough, No drooling, No ear drainage, No facial pain/swelling, No fever, No malaise, No nasal congestion/drainage, No poor fluid intake, No poor solids intake, No sinus infection, No sore throat, No tooth pain, No voice change Allergies and Home Medications Allergies Coded Allergies: Penicillins (Verified Allergy, Unknown, 10/11/18) Sulfa (Sulfonamide Antibiotics) (Verified Allergy, Unknown, 03/30/19) amoxicillin (Verified Allergy, Unknown, 10/11/18) Patient Home Medication List Home Medication List Reviewed: Yes Furosemide (Furosemide) 20 Mg Tablet, (Reported) Entered as Reported by: ROSALIA CHILEL on 09/05/19 124 Losartan Potassium (Losartan Potassium) 50 Mg Tablet, (Reported) Entered as Reported by: ROSALIA CHILEL on 09/05/19 124 Metoprolol Tartrate (Metoprolol Tartrate) 25 Mg Tablet, (Reported) Entered as Reported by: ROSALIA CHILEL on 09/05/19 124 Pantoprazole Sodium (Pantoprazole Sodium) 40 Mg Tablet., (Reported) Entered as Reported by: ROSALIA CHILEL on 09/05/19 124 [Methimazole] , (Reported) Entered as Reported by: ROSALIA CHILEL on 09/05/19 124 Review of Systems Review of Systems Constitutional: No chills, No fever Eyes: Denies Blurred Vision; Pain (Pain and sensation that there was something stuck on his side and inside of the upper eyelid); Denies Photophobia, Denies Vision Changes Ears: No Symptoms Reported Nose: no symptoms reported Mouth: no symptoms reported Throat: no symptoms reported Respiratory: no symptoms reported Cardiovascular: no symptoms reported Gastrointestinal: no symptoms reported Musculoskeletal: no symptoms reported Skin: no symptoms reported Neurological: No Symptoms Reported Past [id number]-[id number]-Krbbeo Hx Patient Social History Tobacco Use?: Yes Tobacco type used: Cigarettes Immunizations Up To Date Tetanus Booster (TDap): Less than 5yrs Seasonal Allergies Seasonal Allergies: No Past Medical History Surgery/Hospitalization HX: Hypertension, coronary artery disease Surgeries: No Respiratory: No Cardiac: Yes (Patient states, "Fluid around my heart".) Angina, Hypertension Neurological: No Genitourinary: No Gastrointestinal: No Gastroesophageal Reflux Musculoskeletal: No Endocrine: Yes Hyperthyroidism HEENT: No Cancer: No Psychosocial: No Integumentary: No (patient has multiple tattoos mostly well-healed he has no signs of skin inj) Blood Disorders: No Physical Exam Vital Signs Vital Signs - First Documented 07/04/22 20:54 Temp 36.9 Pulse 110 Resp 20 B/P (MAP) 164/110 (128) Pulse Ox 96 O2 Delivery Room Air Height, Weight, BMI Height: 6'3.00" Weight: 388lbs. oz. 175.970673mh; 54.00 BMI Method:Stated General Appearance: no apparent distress, obese Eyes: right eye corneal abrasion (With exam under fluorescein dye and black light he had superficial abrasion on the upper aspect of his right eye. I did use a moistened Q-tip to check for foreign body on the inside of the upper eyelid. 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 Then using the fluorescein dye and black light with magnification his eye was evaluated for corneal abrasion or foreign body. No foreign bodies were seen but he did have a superficial corneal abrasion on the right upper part of the eye. Using a moistened Q-tip the inside of the upper eyelid was swabbed to look for foreign body. No foreign body was seen on the swab. Patient's pain was improved with the numbing medicine. Will start on antibiotic drops to help for superficial corneal abrasion. Given information for ophthalmology and optometry for follow-up if not improving or having worsening symptoms. Progress/Results/Core Measures Results/Orders My Orders Orders - DICKSON MITCHELL MD Tetracaine 0.5% Ophth Regla Sdv (Tetracai (07/04/22 21:00) Fluorescein Strips ([id number]-H-Mmzooa) (07/04/22 21:00) Balanced Salt Irrigation Soln (Bss Irrig (07/04/22 21:00) Rx-Ofloxacin 0.3% Ophth Soln (Rx-Ocuflox (07/04/22 21:15) Medications Given in ED Current Medications Medications Dose Ordered Sig/Kirstin Route Start Time Stop Time Status Last Admin Dose Admin Balanced Salt Solution 15 ml ONCE ONCE IR 07/04/22 21:00 07/04/22 21:01 DC 07/04/22 21:09 15 ML Fluorescein Sodium 1 mg ONCE ONCE OU 07/04/22 21:00 07/04/22 21:01 DC 07/04/22 21:09 1 MG Tetracaine HCl 4 ml ONCE ONCE OU 07/04/22 21:00 07/04/22 21:01 DC 07/04/22 21:09 4 ML Vital Signs/I&O 07/04/22 20:54 Temp 36.9 Pulse 110 Resp 20 B/P (MAP) 164/110 (128) Pulse Ox 96 O2 Delivery Room Air Progress Progress Note : Progress Note Physical exam of the right eye with tetracaine numbing drops and fluorescein dye under black light. With magnification no foreign bodies were seen on the eye. He had a very superficial corneal abrasion on the upper part of his right eye. The inside of the upper eyelid was swabbed with moistened Q-tip and no foreign body was seen or removed. Counseled on follow-up and return precautions. We will give Ocuflox antibiotic eyedrops as 1 to 2 drops every 6 hours. Do this for the next 2 days and check back with eye doctor if not having resolution of his pain and symptoms or if it was worsening. Advised he can use cyrd-[id number] ibuprofen or acetaminophen for pain and try applying ice pack and rest in a cool dark room. Departure Impression Primary Impression: Corneal abrasion, right Qualified Codes: S05.01XA - Injury of conjunctiva and corneal abrasion without foreign body, right eye, initial encounter Disposition: HOME, SELF-CARE Condition: Stable Departure-Patient Inst. Decision time for Depature: 21:11 Referrals: JOSE KRAMER MD (PCP/Family) Primary Care Physician Ophthalmmologist Patient Instructions: Corneal Abrasion ED Add. Discharge Instructions: Use the ofloxacin antibiotic eyedrops by placing 1 to 2 drops in the right eye every 6 hours x2 days. May apply ice pack 15 to 20 minutes every few hours as needed for pain. Take ibuprofen 800 mg every 8 hours as needed for pain and inflammation. If not having improvement in the pain and symptoms within the next 2 days then check back with optometry or ophthalmology. If you have when you are ready see you could check with them otherwise Dr. Colvin is an eye doctor here in [place]. The office phone number is [phone]. DICKSON MITCHELL MD Jul 04, 2022 21:14
[2022-07-04] MEDS ORDERED: RX-OFLOXACIN 0.3% OPHTH SOLN 5 ML OP SCH (21:15)
== END 2022-07-04 21:25 | disposition home or self-care (01) ==
LOC: EDUNIT# 20:47 → ER FS 20:49
DX: S05.01XA Injury of conjunctiva and corneal abrasion without foreign body, right eye, initial encounter (principal); F17.210 Nicotine dependence, cigarettes, uncomplicated; Z28.310 Unvaccinated for COVID-19; X58.XXXA Exposure to other specified factors, initial encounter; Y93.01 Activity, walking, marching and hiking; Y92.73 Farm field as the place of occurrence of the external cause
CPT/HCPCS: 65222